=== PATIENT | female | born 1940 | race Caucasian/White ===

== ENCOUNTER 2023-03-12 15:50 | Inpatient (IN) | payer MEDICARE ==
[2023-03-12] MEDS ORDERED: Sodium Chloride 0.9% 1,000 ML IV ONE ×2 (16:39→20:08)
[2023-03-12] MEDS ORDERED: Ondansetron 4 MG/2 ML SDV IVPUSH ONE ×2 (16:39→22:27)
[2023-03-12 17:58] LABS: BASOPHILS PERCENT AUTO 0.4 % (0.0-1.0); EOSINOPHILS PERCENT AUTO 0.1 % (0.0-6.0); HEMATOCRIT 43.6 % (37.0-47.0); HEMOGLOBIN 14.3 gm/dl (12.0-16.0); IMMATURE GRAN ABSOLUTE AUTO 0.06 K/mm3 (0.00-0.05); IMMATURE GRAN PERCENT AUTO 0.7 % (0.0-0.4); LYMPHOCYTES ABSOLUTE AUTO 0.8 K/mm3 (1.0-4.8); LYMPHOCYTES PERCENT AUTO 8.4 % (24.0-44.0); MEAN CORPUSCULAR HEMOGLOBIN 30.9 pg (28.0-32.0); MEAN CORPUSCULAR HGB CONC 32.8 g/dl (32.0-36.0); MEAN CORPUSCULAR VOLUME 94.2 fl (83.0-99.0); MEAN PLATELET VOLUME 9.3 fl (9.4-12.3); MONOCYTES ABSOLUTE AUTO 0.7 K/mm3 (0.0-0.8); MONOCYTES PERCENT AUTO 8.2 % (0.0-8.0); NEUTROPHILS ABSOLUTE AUTO 7.4 K/mm3 (1.8-7.7); NEUTROPHILS PERCENT AUTO 82.2 % (41.0-71.0); PLATELET COUNT,PLT 156 K/mm3 (150-400); RED BLOOD CELL COUNT 4.63 M/mm3 (4.10-5.30); WHITE BLOOD CELL COUNT,WBC 8.97 K/mm3 (3.9-11.3)
[2023-03-12 18:32] LABS: A/G RATIO 0.9 (1-2); ALANINE AMINOTRANSFERASE,ALT 104 U/L (14-59); ALBUMIN 3.6 g/dl (3.4-5.0); ALKALINE PHOSPHATASE 36 U/L (46-116); ANION GAP 13.3 (5-15); ASPARTATE AMNIOTRANSFERASE,AST 73 U/L (15-37); BILIRUBIN TOTAL 0.3 mg/dL (0.2-1.0); BLOOD UREA NITROGEN,BUN 34 mg/dL (7-18); BUN/CREATININE RATIO 22.7 (14-18); C-REACTIVE PROTEIN <0.2 mg/dL (<1.0); CALCIUM 9.1 mg/dL (8.5-10.1); CARBON DIOXIDE,CO2 28 mEq/L (21-32); CHLORIDE,CL 102 mEq/L (98-107); CREATININE 1.5 mg/dL (0.55-1.02); EST CRCL DRUG DOSING (CG) 24.97 mL/min; ESTIMATED GFR 35 mL/min (>60); GLUCOSE RANDOM 180 mg/dL (70-99); LIPASE 255 U/L (73-393); POTASSIUM,K 4.3 mEq/L (3.5-5.1); PROTEIN TOTAL,TP 7.8 g/dl (6.4-8.2); SODIUM,NA 139 mEq/L (136-145); TROPONIN I HIGH SENSITIVITY 17 pg/mL (<=51)
[2023-03-12 19:14] LABS: APPEARANCE,URINE TURBID (Clear); BILIRUBIN,URINE 3+ (Negative); COLOR,URINE BROWN (Yellow); GLUCOSE,URINE TRACE (Negative); KETONES,URINE 2+ (Negative); LEUKOCYTE ESTERASE,URINE 3+ (Negative); NITRITE,URINE NEGATIVE (Negative); OCCULT BLOOD,URINE 3+ (Negative); PH,URINE >=9.0 (5.0-8.0); PROTEIN,URINE 3+ (Negative)
[2023-03-12 19:28] LABS: RBC,URINE 20-30 /hpf (0-5)
[2023-03-12 19:29] LABS: BACTERIA,URINE MANY /hpf (FEW); MUCUS,URINE FEW /hpf (FEW); SQUAMOUS EPITHELIAL CELLS,UR 0-5 /hpf (0-5); YEAST,URINE FEW (NOT SEEN)
[2023-03-12 20:24] LABS: BILIRUBIN,URINE NEGATIVE (Negative); COLOR,URINE YELLOW (Yellow); GLUCOSE,URINE NEGATIVE (Negative); KETONES,URINE NEGATIVE (Negative); LEUKOCYTE ESTERASE,URINE NEGATIVE (Negative); NITRITE,URINE NEGATIVE (Negative); OCCULT BLOOD,URINE 1+ (Negative); PROTEIN,URINE 2+ (Negative); UROBILINOGEN,URINE 0.2 (0.2-1.0)
[2023-03-12 20:41] LABS: APPEARANCE,URINE SLT CLOUDY (Clear); BACTERIA,URINE FEW /hpf (FEW); MUCUS,URINE FEW /hpf (FEW); RBC,URINE 20-30 /hpf (0-5); SQUAMOUS EPITHELIAL CELLS,UR 0-5 /hpf (0-5); WBC,URINE 0-5 /hpf (0-5)
[2023-03-12] MEDS ORDERED: HYDROmorphone 0.5 MG/0.5 ML Syringe IVPUSH ONE (22:08)
[2023-03-12] MEDS ORDERED: Azithromycin 250 MG Tab PO ONE (22:11)
[2023-03-12] MEDS ORDERED: Azithromycin 250 MG Tab PO SCH (22:15)
[2023-03-12] MEDS ORDERED: Sodium Chloride 0.9% 1,000 ML IV SCH (22:15)
[2023-03-12] MEDS ORDERED: Ondansetron 4 MG/2 ML SDV ONE (22:23)
[2023-03-13] MEDS ORDERED: Dicyclomine 10 MG Cap PO ONE (01:03)
[2023-03-13] MEDS ORDERED: LORazepam 2 MG/ML SDV IVPUSH ONE (02:26)
[2023-03-13] MEDS ORDERED: Ondansetron 4 MG/2 ML SDV IVPUSH ONE (05:08)
[2023-03-13 07:30] LABS: BASOPHILS PERCENT AUTO 0.2 % (0.0-1.0); HEMATOCRIT 41.5 % (37.0-47.0); HEMOGLOBIN 13.5 gm/dl (12.0-16.0); IMMATURE GRAN ABSOLUTE AUTO 0.06 K/mm3 (0.00-0.05); IMMATURE GRAN PERCENT AUTO 0.5 % (0.0-0.4); LYMPHOCYTES ABSOLUTE AUTO 0.4 K/mm3 (1.0-4.8); LYMPHOCYTES PERCENT AUTO 2.6 % (24.0-44.0); MEAN CORPUSCULAR HEMOGLOBIN 30.7 pg (28.0-32.0); MEAN CORPUSCULAR HGB CONC 32.5 g/dl (32.0-36.0); MEAN CORPUSCULAR VOLUME 94.3 fl (83.0-99.0); MEAN PLATELET VOLUME 9.3 fl (9.4-12.3); MONOCYTES ABSOLUTE AUTO 1.1 K/mm3 (0.0-0.8); MONOCYTES PERCENT AUTO 8.5 % (0.0-8.0); NEUTROPHILS ABSOLUTE AUTO 11.7 K/mm3 (1.8-7.7); NEUTROPHILS PERCENT AUTO 88.2 % (41.0-71.0); PLATELET COUNT,PLT 119 K/mm3 (150-400); WHITE BLOOD CELL COUNT,WBC 13.22 K/mm3 (3.9-11.3)
[2023-03-13 08:09] LABS: A/G RATIO 0.8 (1-2); ALBUMIN 3.2 g/dl (3.4-5.0); BILIRUBIN TOTAL 0.4 mg/dL (0.2-1.0); BUN/CREATININE RATIO 21.7 (14-18); C-REACTIVE PROTEIN 4.5 mg/dL (<1.0); CALCIUM 8.8 mg/dL (8.5-10.1); CREATININE 1.2 mg/dL (0.55-1.02); EST CRCL DRUG DOSING (CG) 31.21 mL/min; PROTEIN TOTAL,TP 7.3 g/dl (6.4-8.2)
[2023-03-13] MEDS ORDERED: Dextrose 5%-Lact Ringers w/KCl 1,000 ML IV SCH (09:15)
[2023-03-13] MEDS ORDERED: Ondansetron 4 MG Tab.DIS PO PRN (09:27)
[2023-03-13] MEDS ORDERED: Docusate Sodium 100 MG Cap PO PRN (09:27)
[2023-03-13] MEDS: Heparin Sodium 5,000 Units/ML Vial SUBCUT SCH ×2 (11:37→17:16)
[2023-03-13] MEDS: Levofloxacin/Dextrose 5%-Water 500 MG in Premix Bag 1 BAG IV SCH (11:38)
[2023-03-13] MEDS: Sodium Chloride 0.9% 1,000 ML IV SCH ×2 (11:38→20:33)
[2023-03-13] MEDS: Acetaminophen 325 MG Tab PO PRN ×2 (11:43→20:34)
[2023-03-13] MEDS ORDERED: Vancomycin 250 MG Cap PO SCH (13:00)
[2023-03-13] MEDS: Vancomycin 125 MG Cap PO SCH ×3 (13:41→20:33)
[2023-03-13] MEDS ORDERED: Albuterol/Ipratropium 3.0-0.5 MG/3 ML Neb Soln INH PRN (14:00)
[2023-03-13] MEDS ORDERED: Meclizine 12.5 MG Tab PO PRN (14:00)
[2023-03-13] MEDS: traMADol 50 MG Tab PO PRN (16:22)
[2023-03-13] MEDS: Metoprolol Tartrate 25 MG Tab PO SCH (20:33)
[2023-03-14] MEDS: Heparin Sodium 5,000 Units/ML Vial SUBCUT SCH ×3 (02:25→17:38)
[2023-03-14] MEDS: Sodium Chloride 0.9% 1,000 ML IV SCH ×2 (03:20→12:14)
[2023-03-14] MEDS: Levothyroxine 88 MCG Tab PO SCH (05:27)
[2023-03-14 05:38] LABS: ANION GAP 9.5 (5-15); BUN/CREATININE RATIO 19.1 (14-18); CREATININE 1.1 mg/dL (0.55-1.02); EST CRCL DRUG DOSING (CG) 34.05 mL/min; POTASSIUM,K 3.5 mEq/L (3.5-5.1)
[2023-03-14 05:39] LABS: BASOPHILS PERCENT AUTO 0.1 % (0.0-1.0); HEMATOCRIT 41.4 % (37.0-47.0); IMMATURE GRAN ABSOLUTE AUTO 0.09 K/mm3 (0.00-0.05); IMMATURE GRAN PERCENT AUTO 0.6 % (0.0-0.4); LYMPHOCYTES ABSOLUTE AUTO 0.5 K/mm3 (1.0-4.8); LYMPHOCYTES PERCENT AUTO 3.5 % (24.0-44.0); MEAN CORPUSCULAR HEMOGLOBIN 30.5 pg (28.0-32.0); MEAN CORPUSCULAR HGB CONC 31.4 g/dl (32.0-36.0); MEAN CORPUSCULAR VOLUME 97.2 fl (83.0-99.0); MEAN PLATELET VOLUME 9.8 fl (9.4-12.3); MONOCYTES ABSOLUTE AUTO 1.1 K/mm3 (0.0-0.8); MONOCYTES PERCENT AUTO 7.9 % (0.0-8.0); NEUTROPHILS ABSOLUTE AUTO 12.5 K/mm3 (1.8-7.7); NEUTROPHILS PERCENT AUTO 87.9 % (41.0-71.0); PLATELET COUNT,PLT 118 K/mm3 (150-400); RED BLOOD CELL COUNT 4.26 M/mm3 (4.10-5.30); WHITE BLOOD CELL COUNT,WBC 14.23 K/mm3 (3.9-11.3)
[2023-03-14] MEDS: Ondansetron 4 MG/2 ML SDV IV PRN ×3 (05:42→20:01)
[2023-03-14 05:53] LABS: CALCIUM 8.6 mg/dL (8.5-10.1)
[2023-03-14] MEDS: Fenofibrate Nanocrystallized 145 MG Tab PO SCH (08:21)
[2023-03-14] MEDS: Metoprolol Tartrate 25 MG Tab PO SCH ×2 (08:21→20:00)
[2023-03-14] MEDS: Vancomycin 125 MG Cap PO SCH ×2 (08:21→12:13)
[2023-03-14] MEDS: Rosuvastatin 10 MG Tab PO SCH (08:21)
[2023-03-14] MEDS: Aspirin 81 MG Tab.EC PO SCH (08:21)
[2023-03-14] MEDS: Hydrochlorothiazide/Triamterene 25-37.5 MG Cap PO SCH (08:21)
[2023-03-14] MEDS: Levofloxacin/Dextrose 5%-Water 500 MG in Premix Bag 1 BAG IV SCH (08:31)
[2023-03-14] MEDS: traMADol 50 MG Tab PO PRN (09:57)
[2023-03-14] MEDS: Saccharomyces Boulardii (Probiotic) 250 MG Cap PO SCH ×3 (09:57→20:00)
[2023-03-14] MEDS: Acetaminophen 325 MG Tab PO PRN ×2 (13:44→20:01)
[2023-03-15] MEDS: Heparin Sodium 5,000 Units/ML Vial SUBCUT SCH ×3 (01:01→18:01)
[2023-03-15 06:04] LABS: BASOPHILS PERCENT AUTO 0.2 % (0.0-1.0); EOSINOPHILS PERCENT AUTO 0.1 % (0.0-6.0); HEMATOCRIT 40.9 % (37.0-47.0); HEMOGLOBIN 13.1 gm/dl (12.0-16.0); IMMATURE GRAN PERCENT AUTO 0.8 % (0.0-0.4); LYMPHOCYTES ABSOLUTE AUTO 0.6 K/mm3 (1.0-4.8); LYMPHOCYTES PERCENT AUTO 5.1 % (24.0-44.0); MEAN CORPUSCULAR HEMOGLOBIN 30.9 pg (28.0-32.0); MEAN CORPUSCULAR VOLUME 96.5 fl (83.0-99.0); MEAN PLATELET VOLUME 9.6 fl (9.4-12.3); MONOCYTES PERCENT AUTO 8.4 % (0.0-8.0); NEUTROPHILS ABSOLUTE AUTO 10.1 K/mm3 (1.8-7.7); NEUTROPHILS PERCENT AUTO 85.4 % (41.0-71.0); PLATELET COUNT,PLT 132 K/mm3 (150-400); RED BLOOD CELL COUNT 4.24 M/mm3 (4.10-5.30); WHITE BLOOD CELL COUNT,WBC 11.77 K/mm3 (3.9-11.3)
[2023-03-15] MEDS: Levothyroxine 88 MCG Tab PO SCH (06:06)
[2023-03-15 06:25] LABS: ANION GAP 8.3 (5-15); CALCIUM 8.4 mg/dL (8.5-10.1); EST CRCL DRUG DOSING (CG) 37.45 mL/min; POTASSIUM,K 3.3 mEq/L (3.5-5.1)
[2023-03-15] MEDS ORDERED: Potassium Chloride 20 MEQ Tab.ER PO ONE (07:24)
[2023-03-15] MEDS ORDERED: Furosemide 40 MG/4 ML VIAL IVPUSH ONE (07:24)
[2023-03-15] MEDS: Aspirin 81 MG Tab.EC PO SCH (08:37)
[2023-03-15] MEDS: Fenofibrate Nanocrystallized 145 MG Tab PO SCH (08:37)
[2023-03-15] MEDS: Hydrochlorothiazide/Triamterene 25-37.5 MG Cap PO SCH (08:37)
[2023-03-15] MEDS: Saccharomyces Boulardii (Probiotic) 250 MG Cap PO SCH ×3 (08:37→20:54)
[2023-03-15] MEDS: Metoprolol Tartrate 25 MG Tab PO SCH ×2 (08:38→20:55)
[2023-03-15] MEDS: Acetaminophen 325 MG Tab PO PRN (08:38)
[2023-03-15] MEDS: Levofloxacin/Dextrose 5%-Water 500 MG in Premix Bag 1 BAG IV SCH (08:39)
[2023-03-16] MEDS: traMADol 50 MG Tab PO PRN (00:26)
[2023-03-16] MEDS: Heparin Sodium 5,000 Units/ML Vial SUBCUT SCH ×3 (00:29→17:59)
[2023-03-16] MEDS: Levothyroxine 88 MCG Tab PO SCH (06:03)
[2023-03-16 06:25] LABS: BASOPHILS ABSOLUTE AUTO 0.1 K/mm3 (0.0-0.2); BASOPHILS PERCENT AUTO 0.5 % (0.0-1.0); EOSINOPHILS PERCENT AUTO 0.1 % (0.0-6.0); HEMATOCRIT 41.5 % (37.0-47.0); HEMOGLOBIN 13.6 gm/dl (12.0-16.0); IMMATURE GRAN ABSOLUTE AUTO 0.13 K/mm3 (0.00-0.05); IMMATURE GRAN PERCENT AUTO 1.1 % (0.0-0.4); LYMPHOCYTES ABSOLUTE AUTO 0.8 K/mm3 (1.0-4.8); LYMPHOCYTES PERCENT AUTO 6.4 % (24.0-44.0); MEAN CORPUSCULAR HEMOGLOBIN 31.1 pg (28.0-32.0); MEAN CORPUSCULAR HGB CONC 32.8 g/dl (32.0-36.0); MEAN CORPUSCULAR VOLUME 94.7 fl (83.0-99.0); MEAN PLATELET VOLUME 9.8 fl (9.4-12.3); MONOCYTES ABSOLUTE AUTO 1.3 K/mm3 (0.0-0.8); MONOCYTES PERCENT AUTO 10.7 % (0.0-8.0); NEUTROPHILS ABSOLUTE AUTO 9.6 K/mm3 (1.8-7.7); NEUTROPHILS PERCENT AUTO 81.2 % (41.0-71.0); PLATELET COUNT,PLT 164 K/mm3 (150-400); RED BLOOD CELL COUNT 4.38 M/mm3 (4.10-5.30)
[2023-03-16 06:46] LABS: ANION GAP 12.1 (5-15); BUN/CREATININE RATIO 17.5 (14-18); CALCIUM 8.9 mg/dL (8.5-10.1); CREATININE 1.2 mg/dL (0.55-1.02); EST CRCL DRUG DOSING (CG) 31.21 mL/min; POTASSIUM,K 3.1 mEq/L (3.5-5.1)
[2023-03-16] MEDS: Potassium Chloride 10 MEQ in Premix Bag 1 BAG IV SCH ×4 (09:10→13:24)
[2023-03-16] MEDS: Aspirin 81 MG Tab.EC PO SCH (09:10)
[2023-03-16] MEDS: Metoprolol Tartrate 25 MG Tab PO SCH ×2 (09:11→21:11)
[2023-03-16] MEDS: Fenofibrate Nanocrystallized 145 MG Tab PO SCH (09:11)
[2023-03-16] MEDS: Rosuvastatin 10 MG Tab PO SCH (09:11)
[2023-03-16] MEDS: Hydrochlorothiazide/Triamterene 25-37.5 MG Cap PO SCH (09:11)
[2023-03-16] MEDS: Saccharomyces Boulardii (Probiotic) 250 MG Cap PO SCH ×3 (09:12→21:12)
[2023-03-16] MEDS: Levofloxacin/Dextrose 5%-Water 500 MG in Premix Bag 1 BAG IV SCH (15:15)
[2023-03-17] MEDS: Heparin Sodium 5,000 Units/ML Vial SUBCUT SCH ×3 (01:30→17:57)
[2023-03-17] MEDS: Levothyroxine 88 MCG Tab PO SCH (05:30)
[2023-03-17 06:14] LABS: BASOPHILS ABSOLUTE AUTO 0.1 K/mm3 (0.0-0.2); BASOPHILS PERCENT AUTO 0.8 % (0.0-1.0); EOSINOPHILS ABSOLUTE AUTO 0.1 K/mm3 (0.0-0.4); EOSINOPHILS PERCENT AUTO 0.5 % (0.0-6.0); HEMATOCRIT 42.6 % (37.0-47.0); HEMOGLOBIN 14.1 gm/dl (12.0-16.0); IMMATURE GRAN ABSOLUTE AUTO 0.31 K/mm3 (0.00-0.05); LYMPHOCYTES PERCENT AUTO 9.4 % (24.0-44.0); MEAN CORPUSCULAR HGB CONC 33.1 g/dl (32.0-36.0); MEAN CORPUSCULAR VOLUME 93.6 fl (83.0-99.0); MEAN PLATELET VOLUME 9.2 fl (9.4-12.3); MONOCYTES ABSOLUTE AUTO 1.1 K/mm3 (0.0-0.8); NEUTROPHILS ABSOLUTE AUTO 7.7 K/mm3 (1.8-7.7); NEUTROPHILS PERCENT AUTO 75.3 % (41.0-71.0); PLATELET COUNT,PLT 158 K/mm3 (150-400); RED BLOOD CELL COUNT 4.55 M/mm3 (4.10-5.30); WHITE BLOOD CELL COUNT,WBC 10.22 K/mm3 (3.9-11.3)
[2023-03-17 06:29] LABS: ANION GAP 12.5 (5-15); CREATININE 1.2 mg/dL (0.55-1.02); EST CRCL DRUG DOSING (CG) 31.21 mL/min; POTASSIUM,K 3.5 mEq/L (3.5-5.1)
[2023-03-17] MEDS: Fenofibrate Nanocrystallized 145 MG Tab PO SCH (08:39)
[2023-03-17] MEDS: Metoprolol Tartrate 25 MG Tab PO SCH ×2 (08:39→20:49)
[2023-03-17] MEDS: Hydrochlorothiazide/Triamterene 25-37.5 MG Cap PO SCH (08:39)
[2023-03-17] MEDS: Aspirin 81 MG Tab.EC PO SCH (08:39)
[2023-03-17] MEDS: Saccharomyces Boulardii (Probiotic) 250 MG Cap PO SCH ×3 (08:40→20:50)
[2023-03-17] MEDS: Levofloxacin/Dextrose 5%-Water 500 MG in Premix Bag 1 BAG IV SCH ×2 (08:40→10:37)
[2023-03-17] MEDS ORDERED: Levofloxacin 500 MG Tab PO SCH (10:00)
[2023-03-17] MEDS: Loperamide 2 MG Cap PO PRN (14:59)
[2023-03-17] MEDS: Acetaminophen 325 MG Tab PO PRN (20:48)
[2023-03-18] MEDS: Loperamide 2 MG Cap PO PRN ×2 (00:01→21:23)
[2023-03-18] MEDS: Heparin Sodium 5,000 Units/ML Vial SUBCUT SCH ×3 (02:05→18:44)
[2023-03-18] MEDS: Levothyroxine 88 MCG Tab PO SCH ×2 (04:49→07:24)
[2023-03-18] MEDS: Hydrochlorothiazide/Triamterene 25-37.5 MG Cap PO SCH (08:19)
[2023-03-18] MEDS: Saccharomyces Boulardii (Probiotic) 250 MG Cap PO SCH ×3 (08:19→21:00)
[2023-03-18] MEDS: Aspirin 81 MG Tab.EC PO SCH (08:19)
[2023-03-18] MEDS: Metoprolol Tartrate 25 MG Tab PO SCH ×2 (08:19→20:58)
[2023-03-18] MEDS: Fenofibrate Nanocrystallized 145 MG Tab PO SCH (08:19)
[2023-03-18] MEDS: traMADol 50 MG Tab PO PRN ×2 (13:19→20:59)
[2023-03-18] MEDS: Acetaminophen 325 MG Tab PO PRN (22:14)
[2023-03-19] MEDS: Heparin Sodium 5,000 Units/ML Vial SUBCUT SCH ×3 (02:36→17:53)
[2023-03-19] MEDS: Levothyroxine 88 MCG Tab PO SCH (05:01)
[2023-03-19] MEDS: Fenofibrate Nanocrystallized 145 MG Tab PO SCH (08:25)
[2023-03-19] MEDS: Metoprolol Tartrate 25 MG Tab PO SCH ×2 (08:25→20:04)
[2023-03-19] MEDS: Saccharomyces Boulardii (Probiotic) 250 MG Cap PO SCH ×3 (08:25→20:04)
[2023-03-19] MEDS: Aspirin 81 MG Tab.EC PO SCH (08:25)
[2023-03-19] MEDS: Hydrochlorothiazide/Triamterene 25-37.5 MG Cap PO SCH (08:25)
[2023-03-19] MEDS: Rosuvastatin 10 MG Tab PO SCH (08:30)
[2023-03-19] MEDS ORDERED: levETIRAcetam 500 MG in Sodium Chloride 0.9% 100 ML IV SCH (09:00)
[2023-03-19] MEDS: traMADol 50 MG Tab PO PRN (12:19)
[2023-03-19] MEDS: Loperamide 2 MG Cap PO PRN (14:28)
[2023-03-19] MEDS: Acetaminophen 325 MG Tab PO PRN (20:03)
[2023-03-20] MEDS: Heparin Sodium 5,000 Units/ML Vial SUBCUT SCH ×4 (02:50→17:07)
[2023-03-20] MEDS: Levothyroxine 88 MCG Tab PO SCH (06:05)
[2023-03-20] MEDS: Hydrochlorothiazide/Triamterene 25-37.5 MG Cap PO SCH (08:05)
[2023-03-20] MEDS: Aspirin 81 MG Tab.EC PO SCH (08:05)
[2023-03-20] MEDS: Saccharomyces Boulardii (Probiotic) 250 MG Cap PO SCH ×3 (08:05→20:29)
[2023-03-20] MEDS: Metoprolol Tartrate 25 MG Tab PO SCH ×2 (08:05→20:30)
[2023-03-20] MEDS: Fenofibrate Nanocrystallized 145 MG Tab PO SCH (08:05)
[2023-03-20] MEDS: Loperamide 2 MG Cap PO PRN ×2 (09:24→17:07)
[2023-03-20] MEDS: Acetaminophen 325 MG Tab PO PRN ×2 (17:07→21:30)
[2023-03-21] MEDS: Heparin Sodium 5,000 Units/ML Vial SUBCUT SCH ×2 (01:50→09:18)
[2023-03-21] MEDS: Levothyroxine 88 MCG Tab PO SCH (05:16)
[2023-03-21] MEDS: Hydrochlorothiazide/Triamterene 25-37.5 MG Cap PO SCH (09:18)
[2023-03-21] MEDS: Rosuvastatin 10 MG Tab PO SCH (09:18)
[2023-03-21] MEDS: Saccharomyces Boulardii (Probiotic) 250 MG Cap PO SCH (09:18)
[2023-03-21] MEDS: Aspirin 81 MG Tab.EC PO SCH (09:18)
[2023-03-21] MEDS: Fenofibrate Nanocrystallized 145 MG Tab PO SCH (09:18)
[2023-03-21] MEDS: Metoprolol Tartrate 25 MG Tab PO SCH (09:18)
[2023-03-21 12:03] VITALS: BP 141/94; PULSE 78
== END 2023-03-21 12:01 | DRG 872 ==
LOC: JD.ED 15:50 → JD.MS 03-13 09:27
PROVIDERS: ADMIT Hospitalist; ATTEND Hospitalist
PROC: 0T9B70Z Drainage of Bladder with Drainage Device, Via Natural or Artificial Opening (ICD-10-PCS; principal; 2023-03-13)
PROC: 3E03329 Introduction of Other Anti-infective into Peripheral Vein, Percutaneous Approach (ICD-10-PCS; 2023-03-13)
DX: A41.9 Sepsis, unspecified organism (principal); N39.0 Urinary tract infection, site not specified; K52.9 Noninfective gastroenteritis and colitis, unspecified; E86.0 Dehydration; K57.30 Diverticulosis of large intestine without perforation or abscess without bleeding; K42.9 Umbilical hernia without obstruction or gangrene; K80.20 Calculus of gallbladder without cholecystitis without obstruction; K44.9 Diaphragmatic hernia without obstruction or gangrene; I72.8 Aneurysm of other specified arteries; I25.10 Atherosclerotic heart disease of native coronary artery without angina pectoris; I10 Essential (primary) hypertension; J44.9 Chronic obstructive pulmonary disease, unspecified; M19.90 Unspecified osteoarthritis, unspecified site; E03.9 Hypothyroidism, unspecified; E66.9 Obesity, unspecified; Z96.659 Presence of unspecified artificial knee joint; E78.5 Hyperlipidemia, unspecified; Z79.82 Long term (current) use of aspirin; Z79.899 Other long term (current) drug therapy; I25.2 Old myocardial infarction; Z86.711 Personal history of pulmonary embolism; Z86.010 Personal history of colon polyps; Z68.39 Body mass index [BMI] 39.0-39.9, adult; Z95.2 Presence of prosthetic heart valve
CPT/HCPCS: 36415 ×2; 74177; 80053 ×2; 81001 ×2; 83630; 83690; 83880; 84484; 85025 ×2; 86140 ×2; 87045; 87046 ×3; 87086; 87324; 87493 ×2; 87899 ×2; A9270 ×2; J1170; J2060; J2405 ×3; J7030 ×2; 80048; 87040; 94760; 94761; 97110-GP; 97116-GP; 97162-GP; 97165-GO; 97535-GO; 97597-GP; 99222; 99231; 99232; 99239; 99284; J1644; J1940; J1956; J3480

== ENCOUNTER 2024-03-04 14:17 | Inpatient (IN) | payer MEDICARE ==
[2024-03-04 16:39] LABS: APPEARANCE,URINE CLEAR (Clear); BILIRUBIN,URINE NEGATIVE (Negative); COLOR,URINE YELLOW (Yellow); GLUCOSE,URINE NEGATIVE (Negative); KETONES,URINE NEGATIVE (Negative); LEUKOCYTE ESTERASE,URINE 1+ (Negative); NITRITE,URINE NEGATIVE (Negative); OCCULT BLOOD,URINE NEGATIVE (Negative); PROTEIN,URINE NEGATIVE (Negative); UROBILINOGEN,URINE 0.2 (0.2-1.0)
[2024-03-04 16:42] LABS: BASOPHILS PERCENT AUTO 0.6 % (0.0-1.0); EOSINOPHILS ABSOLUTE AUTO 0.1 K/mm3 (0.0-0.4); EOSINOPHILS PERCENT AUTO 1.5 % (0.0-6.0); HEMATOCRIT 31.9 % (37.0-47.0); HEMOGLOBIN 10.3 gm/dl (12.0-16.0); IMMATURE GRAN ABSOLUTE AUTO 0.02 K/mm3 (0.00-0.05); IMMATURE GRAN PERCENT AUTO 0.6 % (0.0-0.4); LYMPHOCYTES ABSOLUTE AUTO 1.1 K/mm3 (1.0-4.8); LYMPHOCYTES PERCENT AUTO 31.7 % (24.0-44.0); MEAN CORPUSCULAR HEMOGLOBIN 33.2 pg (28.0-32.0); MEAN CORPUSCULAR HGB CONC 32.3 g/dl (32.0-36.0); MEAN CORPUSCULAR VOLUME 102.9 fl (83.0-99.0); MONOCYTES ABSOLUTE AUTO 0.5 K/mm3 (0.0-0.8); MONOCYTES PERCENT AUTO 13.3 % (0.0-8.0); NEUTROPHILS ABSOLUTE AUTO 1.8 K/mm3 (1.8-7.7); NEUTROPHILS PERCENT AUTO 52.3 % (41.0-71.0); PLATELET COUNT,PLT 150 K/mm3 (150-400); WHITE BLOOD CELL COUNT,WBC 3.38 K/mm3 (3.9-11.3)
[2024-03-04 16:44] LABS: BACTERIA,URINE FEW /hpf (FEW); MUCUS,URINE FEW /hpf (FEW); RBC,URINE 0-5 /hpf (0-5); SQUAMOUS EPITHELIAL CELLS,UR 0-5 /hpf (0-5)
[2024-03-04 17:02] LABS: INR 1.11; PROTHROMBIN TIME 11.7 SECONDS (9.7-12.0)
[2024-03-04 17:07] LABS: A/G RATIO 0.9 (1-2); ANION GAP 11.2 (5-15); BILIRUBIN TOTAL 0.6 mg/dL (0.2-1.0); CALCIUM 8.8 mg/dL (8.5-10.1); CREATININE 1.5 mg/dL (0.55-1.02); EST CRCL DRUG DOSING (CG) 24.54 mL/min; POTASSIUM,K 4.2 mEq/L (3.5-5.1); PROTEIN TOTAL,TP 6.4 g/dl (6.4-8.2)
[2024-03-04] MEDS ORDERED: Morphine 2 MG/ML SYRINGE IVPUSH PRN (17:32)
[2024-03-04] MEDS ORDERED: Naloxone 0.4 MG/ML SDV IVPUSH PRN (17:32)
[2024-03-04] MEDS ORDERED: Acetaminophen/HYDROcodone 325-5 MG Tab PO PRN (17:32)
[2024-03-04] MEDS ORDERED: Acetaminophen 325 MG Tab PO PRN (17:32)
[2024-03-04] MEDS ORDERED: Polyethylene Glycol 3350 Powder 17 GM Packet PO PRN (17:32)
[2024-03-04] MEDS: Apixaban 5 MG Tab PO SCH (18:10)
[2024-03-05] MEDS: Levothyroxine 88 MCG Tab PO SCH (05:59)
[2024-03-05 06:15] LABS: A/G RATIO 0.9 (1-2); ALBUMIN 2.4 g/dl (3.4-5.0); ANION GAP 8.7 (5-15); BILIRUBIN TOTAL 0.7 mg/dL (0.2-1.0); CALCIUM 8.3 mg/dL (8.5-10.1); CREATININE 1.5 mg/dL (0.55-1.02); EST CRCL DRUG DOSING (CG) 24.54 mL/min; POTASSIUM,K 3.7 mEq/L (3.5-5.1); PROTEIN TOTAL,TP 5.2 g/dl (6.4-8.2)
[2024-03-05 06:35] LABS: BASOPHILS PERCENT AUTO 0.7 % (0.0-1.0); EOSINOPHILS ABSOLUTE AUTO 0.1 K/mm3 (0.0-0.4); HEMATOCRIT 27.8 % (37.0-47.0); HEMOGLOBIN 8.9 gm/dl (12.0-16.0); IMMATURE GRAN ABSOLUTE AUTO 0.01 K/mm3 (0.00-0.05); IMMATURE GRAN PERCENT AUTO 0.3 % (0.0-0.4); LYMPHOCYTES PERCENT AUTO 33.6 % (24.0-44.0); MEAN CORPUSCULAR HEMOGLOBIN 32.2 pg (28.0-32.0); MEAN CORPUSCULAR VOLUME 100.7 fl (83.0-99.0); MEAN PLATELET VOLUME 10.7 fl (9.4-12.3); MONOCYTES ABSOLUTE AUTO 0.5 K/mm3 (0.0-0.8); MONOCYTES PERCENT AUTO 16.4 % (0.0-8.0); NEUTROPHILS ABSOLUTE AUTO 1.4 K/mm3 (1.8-7.7); PLATELET COUNT,PLT 128 K/mm3 (150-400); RED BLOOD CELL COUNT 2.76 M/mm3 (4.10-5.30); WHITE BLOOD CELL COUNT,WBC 3.04 K/mm3 (3.9-11.3)
[2024-03-05 07:40] LABS: SLIDE REVIEW ABNORMAL SMEAR
[2024-03-05] MEDS: Aspirin 81 MG Tab.EC PO SCH (08:10)
[2024-03-05] MEDS: Apixaban 5 MG Tab PO SCH (08:10)
[2024-03-05] MEDS: Sodium Chloride 0.9% 1,000 ML IV SCH (08:11)
[2024-03-05] MEDS: Fenofibrate Nanocrystallized 145 MG Tab PO SCH (08:11)
[2024-03-05 12:43] VITALS: BP 107/82; PULSE 62
== END 2024-03-05 15:45 | disposition home or self-care (01) | DRG 300 ==
LOC: JD.ED 14:17 → JD.MS 17:29
PROVIDERS: ADMIT Family Medicine; ATTEND Family Medicine
DX: I82.412 Acute embolism and thrombosis of left femoral vein (principal); N17.9 Acute kidney failure, unspecified; I10 Essential (primary) hypertension; N18.4 Chronic kidney disease, stage 4 (severe); I82.511 Chronic embolism and thrombosis of right femoral vein; Z66 Do not resuscitate; I25.10 Atherosclerotic heart disease of native coronary artery without angina pectoris; J44.9 Chronic obstructive pulmonary disease, unspecified; M19.90 Unspecified osteoarthritis, unspecified site; E03.9 Hypothyroidism, unspecified; Z88.5 Allergy status to narcotic agent; Z68.31 Body mass index [BMI] 31.0-31.9, adult; E66.9 Obesity, unspecified; Z96.659 Presence of unspecified artificial knee joint; D50.9 Iron deficiency anemia, unspecified; I12.9 Hypertensive chronic kidney disease with stage 1 through stage 4 chronic kidney disease, or unspecified chronic kidney disease; R74.01 Elevation of levels of liver transaminase levels; D63.1 Anemia in chronic kidney disease; Z88.8 Allergy status to other drugs, medicaments and biological substances; Z79.82 Long term (current) use of aspirin; Z79.899 Other long term (current) drug therapy; I25.2 Old myocardial infarction; Z86.711 Personal history of pulmonary embolism; Z86.010 Personal history of colon polyps; Z68.30 Body mass index [BMI] 30.0-30.9, adult; Z95.2 Presence of prosthetic heart valve
CPT/HCPCS: 36415; 80053; 81001; 85025; 85610; 85730; 87086; 93005; 93010; 99284; 99285; A9270-GY; J7030

== ENCOUNTER 2024-07-23 13:33 | Emergency (ER) | payer MEDICARE ==
[2024-07-23 15:10] LABS: BASOPHILS PERCENT AUTO 0.4 % (0.0-1.0); EOSINOPHILS PERCENT AUTO 0.6 % (0.0-6.0); HEMATOCRIT 37.4 % (37.0-47.0); IMMATURE GRAN ABSOLUTE AUTO 0.03 K/mm3 (0.00-0.05); IMMATURE GRAN PERCENT AUTO 0.4 % (0.0-0.4); LYMPHOCYTES ABSOLUTE AUTO 0.7 K/mm3 (1.0-4.8); LYMPHOCYTES PERCENT AUTO 10.1 % (24.0-44.0); MEAN CORPUSCULAR HEMOGLOBIN 31.2 pg (28.0-32.0); MEAN CORPUSCULAR HGB CONC 32.1 g/dl (32.0-36.0); MEAN CORPUSCULAR VOLUME 97.1 fl (83.0-99.0); MEAN PLATELET VOLUME 9.7 fl (9.4-12.3); MONOCYTES ABSOLUTE AUTO 0.6 K/mm3 (0.0-0.8); NEUTROPHILS ABSOLUTE AUTO 5.7 K/mm3 (1.8-7.7); NEUTROPHILS PERCENT AUTO 80.5 % (41.0-71.0); PLATELET COUNT,PLT 123 K/mm3 (150-400); RED BLOOD CELL COUNT 3.85 M/mm3 (4.10-5.30); WHITE BLOOD CELL COUNT,WBC 7.02 K/mm3 (3.9-11.3)
[2024-07-23 15:45] LABS: A/G RATIO 0.9 (1-2); ALANINE AMINOTRANSFERASE,ALT 35 U/L (14-59); ALBUMIN 3.4 g/dl (3.4-5.0); ALKALINE PHOSPHATASE 36 U/L (46-116); ASPARTATE AMNIOTRANSFERASE,AST 58 U/L (15-37); BILIRUBIN TOTAL 0.5 mg/dL (0.2-1.0); BLOOD UREA NITROGEN,BUN 62 mg/dL (7-18); BUN/CREATININE RATIO 32.6 (14-18); CALCIUM 8.9 mg/dL (8.5-10.1); CARBON DIOXIDE,CO2 30 mEq/L (21-32); CHLORIDE,CL 106 mEq/L (98-107); CREATININE 1.9 mg/dL (0.55-1.02); EST CRCL DRUG DOSING (CG) 17.74 mL/min; ESTIMATED GFR 26 mL/min (>60); GLUCOSE RANDOM 136 mg/dL (70-99); SODIUM,NA 144 mEq/L (136-145); TROPONIN I HIGH SENSITIVITY 11 pg/mL (<=51)
[2024-07-23] MEDS: Ondansetron 4 MG/2 ML SDV IVPUSH ONE ×2 (15:47→21:31)
[2024-07-23] MEDS: Sodium Chloride 0.9% 10 ML Syringe FLUSH PRN (15:47)
[2024-07-23 15:49] LABS: C-REACTIVE PROTEIN < 0.05 mg/dL (<0.30)
[2024-07-23] MEDS ORDERED: Aluminum Hydroxide/Magnesium Hydroxide/Simethicone Susp 30 ML Cup PO ONE (16:27)
[2024-07-23 16:47] LABS: APPEARANCE,URINE CLEAR (Clear); BILIRUBIN,URINE NEGATIVE (Negative); COLOR,URINE YELLOW (Yellow); GLUCOSE,URINE NEGATIVE (Negative); KETONES,URINE NEGATIVE (Negative); LEUKOCYTE ESTERASE,URINE 1+ (Negative); NITRITE,URINE NEGATIVE (Negative); OCCULT BLOOD,URINE 3+ (Negative); PROTEIN,URINE NEGATIVE (Negative); UROBILINOGEN,URINE 0.2 (0.2-1.0)
[2024-07-23] MEDS: Famotidine 20 MG/2 ML SDV IVPUSH ONE (17:14)
[2024-07-23] MEDS: Sodium Chloride 0.9% 1,000 ML IV STA (17:14)
[2024-07-23 17:17] LABS: RBC,URINE 20-30 /hpf (0-5)
[2024-07-23 17:18] LABS: BACTERIA,URINE FEW /hpf (FEW); MUCUS,URINE FEW /hpf (FEW); SQUAMOUS EPITHELIAL CELLS,UR 0-5 /hpf (0-5)
[2024-07-23] MEDS ORDERED: Piperacillin/Tazobactam 4.5 GM in Sodium Chloride 0.9% 100 ML IV ONE (19:25)
[2024-07-23] MEDS ORDERED: Sodium Chloride 0.9% 1,000 ML IV SCH (19:30)
[2024-07-23] MEDS: Piperacillin/Tazobactam 4.5 GM Vial IV ONE (19:51)
[2024-07-23] MEDS ORDERED: Morphine 4 MG/ML Syringe IVPUSH SCH (21:15)
[2024-07-23] MEDS ORDERED: Morphine 2 MG/ML SYRINGE IVPUSH SCH (21:15)
[2024-07-23] MEDS ORDERED: Naloxone 0.4 MG/ML SDV IVPUSH PRN (21:23)
[2024-07-23] MEDS: Morphine 2 MG/ML SYRINGE IVPUSH ONE ×2 (21:28)
[2024-07-23] MEDS: Morphine 4 MG/ML Syringe IVPUSH ONE (21:30)
[2024-07-24] MEDS: Morphine 4 MG/ML Syringe IVPUSH SCH (03:08)
[2024-07-24 06:21] VITALS: BP 143/58; PULSE 65
== END 2024-07-24 06:00 ==
LOC: JD.ED 13:33
DX: K85.10 Biliary acute pancreatitis without necrosis or infection (principal); I25.10 Atherosclerotic heart disease of native coronary artery without angina pectoris; I25.2 Old myocardial infarction; I10 Essential (primary) hypertension; J44.9 Chronic obstructive pulmonary disease, unspecified; M19.90 Unspecified osteoarthritis, unspecified site; E03.9 Hypothyroidism, unspecified; E66.9 Obesity, unspecified; Z68.33 Body mass index [BMI] 33.0-33.9, adult; Z95.2 Presence of prosthetic heart valve; Z96.659 Presence of unspecified artificial knee joint; Z88.5 Allergy status to narcotic agent; Z79.82 Long term (current) use of aspirin; Z79.890 Hormone replacement therapy; Z79.01 Long term (current) use of anticoagulants; Z79.899 Other long term (current) drug therapy
CPT/HCPCS: 36415; 74022; 76705; 80053; 81001; 83690; 84484; 85025; 86140; 87086; 87428; 93005; 96361; 96374; 96375; 96376; 99285; J2270; J2405; J2543; J7030; 93010